=== PATIENT | female | born 1935 | race Caucasian/White ===

== ENCOUNTER → 2016-10-24 | Outpatient (CLI) | payer OTHER | END | disposition home or self-care (01) | LOC: RES 12:44 | DX: R06.02 Shortness of breath (principal) | CPT/HCPCS: 94060; 94726; 94729 ==

== ENCOUNTER → 2018-04-21 | Outpatient (CLI) | payer OTHER ==
[~2018-04-21] VITALS: Ht 149.9 cm; Wt 64.0 kg
[~2018-04-21] MED LIST: ASPIR 8181 M1 PO; CENTRUM SILVER1 EAC3 PO; FISH OIL 1,2001 EAC4 PO; NORVASC5 MG PO; PRAVACHOL40 MG PO; PRILOSEC OTC20 MG PO; TRAVATAN Z5 ML BOTH EYES
== END | disposition home or self-care (01) ==
LOC: AMB 11:05
DX: D12.5 Benign neoplasm of sigmoid colon (principal); D12.0 Benign neoplasm of cecum; K57.30 Diverticulosis of large intestine without perforation or abscess without bleeding; I10 Essential (primary) hypertension; E78.5 Hyperlipidemia, unspecified; Z79.82 Long term (current) use of aspirin
CPT/HCPCS: 88305